=== PATIENT | male | born 1950 | race Asian ===

== ENCOUNTER 2018-07-07 08:56 | Outpatient (CLI) | payer MEDICARE, SELFPAY ==
[2018-07-07 10:49] LABS: ALT 58 U/L (12-78); AST 36 U/L (15-37); Albumin 3.8 g/dL (3.4-5.0); Alkaline Phosphatase 73 U/L (46-116); Anion Gap 11.1 mmol/L (3-11); BUN 18 mg/dL (7-18); Bilirubin, Total 1.9 mg/dL (0.2-1.0); CO2 25.9 mmol/L (21.0-32.0); CREATININE 1.21 mg/dL (0.70-1.30); Calcium 8.7 mg/dL (8.5-10.1); Chloride 104 mmol/L (98-107); Glucose 75 mg/dL (70-100); PHOSPHORUS 2.8 mg/dL (2.6-4.7); Potassium 4.1 mmol/L (3.5-5.1); Sodium 141 mmol/L (136-145); Total Protein 7.2 g/dL (6.4-8.2)
[2018-07-10 14:48] LABS: HIV-1 RNA Quantification <20 copies/mL (UNDECT)
== END 2018-07-07 09:16 ==
PROVIDERS: PCP Family Medicine; Visit Provider Family Medicine
DX: B20 Human immunodeficiency virus [HIV] disease (principal); Z79.899 Other long term (current) drug therapy; I10 Essential (primary) hypertension; I25.10 Atherosclerotic heart disease of native coronary artery without angina pectoris
CPT/HCPCS: 36415; 80053; 87536; 84100

== ENCOUNTER 2018-09-01 16:25 | Outpatient (CLI) | payer MEDICARE, SELFPAY | END 2018-09-01 16:45 | PROVIDERS: PCP Family Medicine; Referring Provider Nurse Practitioner Family; Visit Provider Internal Medicine Infectious Disease | DX: B20 Human immunodeficiency virus [HIV] disease (principal); Z79.899 Other long term (current) drug therapy | CPT/HCPCS: 99215 ==

== ENCOUNTER 2019-02-23 11:32 | Outpatient (CLI) | payer MEDICARE, SELFPAY ==
[2019-02-23 12:24] LABS: Abs Immature Grans 0.01 k/cumm (0.0-0.09); Absolute Basophil Count 0.04 k/cumm (0.0-0.2); Absolute Eosinophil Count 0.26 k/cumm (0.0-0.7); Absolute Lymphocyte Count 1.68 k/cumm (1.2-3.4); Absolute Monocyte Count 0.51 k/cumm (0.11-0.7); Basophils % 0.8; Eosinophils % 4.9; HCT 46.5 % (40.0-50.0); HGB 15.9 g/dL (13.5-17.5); Immature Grans % 0.2; Lymphocytes % 31.7; Mean Corp. HGB Concentration 34.2 g/dL (32.0-36.0); Mean Corpuscular Hemoglobin 32.5 pg (27.0-33.0); Mean Corpuscular Volume 95.1 fL (80-95); Mean Platelet Volume 10.2 fL (8.0-11.0); Monocytes % 9.6; Neutrophils % 52.8; Platelet Count 145 x1000/uL (130-400); RBC 4.89 m/cumm (4.50-6.00); RBC Distribution Width 12.1 % (11.8-14.1)
[2019-02-25 11:29] LABS: CD3 61 % (62-87); CD4 28 % (35-63); CD8 32 % (10-35)
[2019-02-26 15:02] LABS: HIV-1 RNA Quantification <20 copies/mL (UNDECT)
== END 2019-02-23 11:52 ==
PROVIDERS: PCP Family Medicine; Visit Provider Nurse Practitioner Family
DX: B20 Human immunodeficiency virus [HIV] disease (principal); Z79.899 Other long term (current) drug therapy
CPT/HCPCS: 36415; 80053; 80061; 83721; 87536; 85025; 86359; 86360

== ENCOUNTER 2019-02-23 13:30 | Outpatient (CLI) | payer MEDICARE, SELFPAY | END 2019-02-23 13:50 | PROVIDERS: PCP Family Medicine; Referring Provider Nurse Practitioner Family; Visit Provider Internal Medicine Infectious Disease | DX: B20 Human immunodeficiency virus [HIV] disease (principal); Z79.899 Other long term (current) drug therapy | CPT/HCPCS: 36415; 87536; 85025; 86359; 86360; 99215 ==

== ENCOUNTER 2019-02-26 09:57 | Outpatient (CLI) | payer MEDICARE, SELFPAY ==
[2019-02-26 11:05] LABS: Abs Immature Grans 0.01 k/cumm (0.0-0.09); Absolute Basophil Count 0.05 k/cumm (0.0-0.2); Absolute Eosinophil Count 0.37 k/cumm (0.0-0.7); Absolute Lymphocyte Count 1.91 k/cumm (1.2-3.4); Absolute Monocyte Count 0.58 k/cumm (0.11-0.7); Basophils % 0.9; HCT 48.3 % (40.0-50.0); HGB 16.5 g/dL (13.5-17.5); Immature Grans % 0.2; Lymphocytes % 35.9; Mean Corp. HGB Concentration 34.2 g/dL (32.0-36.0); Mean Corpuscular Hemoglobin 32.7 pg (27.0-33.0); Mean Corpuscular Volume 95.8 fL (80-95); Mean Platelet Volume 10.3 fL (8.0-11.0); Monocytes % 10.9; Neutrophils % 45.1; Platelet Count 142 x1000/uL (130-400); RBC 5.04 m/cumm (4.50-6.00); RBC Distribution Width 12.2 % (11.8-14.1); White Blood Cell Count 5.32 k/cumm (4.4-10.8)
[2019-02-26 12:01] LABS: ALT 51 U/L (12-78); AST 36 U/L (15-37); Albumin 3.9 g/dL (3.4-5.0); Alkaline Phosphatase 68 U/L (46-116); Anion Gap 8.5 mmol/L (3-11); BUN 19 mg/dL (7-18); Bilirubin, Total 0.6 mg/dL (0.2-1.0); CO2 26.5 mmol/L (21.0-32.0); CREATININE 1.06 mg/dL (0.70-1.30); Calcium 8.9 mg/dL (8.5-10.1); Calculated LDL 69; Chloride 104 mmol/L (98-107); Cholesterol 144 mg/dL (50-200); Glucose 89 mg/dL (70-100); HDL Cholesterol 42 mg/dL (40-60); Potassium 4.1 mmol/L (3.5-5.1); Sodium 139 mmol/L (136-145); Total Protein 7.2 g/dL (6.4-8.2); Triglyceride 165 mg/dL (30-150)
[2019-02-28 08:04] LABS: CD3 63 % (62-87); CD4 26 % (35-63); CD8 36 % (10-35)
[2019-03-02 15:07] LABS: HIV-1 RNA Quantification <20 copies/mL (UNDECT)
== END 2019-02-26 10:17 ==
PROVIDERS: PCP Family Medicine; Visit Provider Internal Medicine Infectious Disease
DX: B20 Human immunodeficiency virus [HIV] disease (principal); Z79.899 Other long term (current) drug therapy
CPT/HCPCS: 36415; 80053; 80061; 83721; 87536; 85025; 86359; 86360

== ENCOUNTER 2019-08-31 13:15 | Outpatient (CLI) | payer MEDICARE, SELFPAY | END 2019-08-31 13:35 | PROVIDERS: PCP Family Medicine; Referring Provider Nurse Practitioner Family; Visit Provider Internal Medicine Infectious Disease | DX: B20 Human immunodeficiency virus [HIV] disease (principal); Z79.899 Other long term (current) drug therapy; Z23 Encounter for immunization | CPT/HCPCS: 90471; 90472; 90686; 90732; 99215 ==